=== PATIENT | male | born 1945 | race Caucasian/White ===

== ENCOUNTER 2021-11-22 02:36 | Emergency (ER) | payer OTHER, SELFPAY ==
[2021-11-22] VITALS (9 sets, daily range): BP systolic 128–193; BP diastolic 63–93; PULSE 49–60; RESP 12–21; O2SAT 95–99; BMI 24.7
--- NOTE | 2021-11-22 02:53 | DI.RAD.S_ITS ---
PROCEDURE: XR CHEST 1V INDICATIONS: chest pain TECHNIQUE: One view of the chest was acquired. COMPARISON: None. FINDINGS: Surgical changes and devices: None. Lungs and pleura: Mild left basilar atelectasis. Lungs are otherwise clear. No pleural effusions or pneumothorax. Mediastinum: Mediastinal contours appear normal. Heart size is normal. Bones and chest wall: No suspicious bony lesions. Overlying soft tissues appear unremarkable. IMPRESSION: No acute cardiopulmonary disease. No significant discrepancy with the awake overnight monitor radiology preliminary report. Dictated by: Kay Nichols M.D. on 11/22/2021 at 7:52 Approved by: Kay Nichols M.D. on 11/22/2021 at 7:53
[2021-11-22 03:00] LABS: Add Manual Diff / Slide Review NO; Basophils Absolute Auto 0 /uL (0-100); Basophils Percent Auto 0.7 % (0-2); Eosinophils Absolute Auto 200 /uL (0-450); Hematocrit 43.7 % (41-53); Hemoglobin 14.7 g/dL (13.5-17.5); Lymphocytes Absolute Auto 1700 /uL (1100-4500); Lymphocytes Percent Auto 30.3 % (25-40); Mean Corpuscular HGB Conc 33.5 % (30-36); Mean Corpuscular Hemoglobin 31.1 PG (26-34); Mean Corpuscular Volume 92.7 fL (80-100); Monocytes Absolute Auto 600 /uL (0-900); Monocytes Percent Auto 10.7 % (3-14); Neutrophils Absolute Auto 3000 /uL (1500-7000); Neutrophils Percent Auto 54.3 % (50-75); Platelet Count 158 X10^3/uL (150-400); Red Blood Cell Count 4.72 X10^6/uL (4.5-5.9); Red Cell Distribution Width 13.1 % (11.6-14.8); White Blood Cell Count 5.5 X10^3/uL (4.5-11.0)
[2021-11-22 03:11] LABS: Alanine Aminotransferase 23 IU/L (<50); Albumin 4.4 g/dL (3.5-5.0); Albumin Globulin Ratio 1.5 (1.0-2.8); Alkaline Phosphatase 54 U/L (38-126); Aspartate Aminotransferase 24 IU/L (17-59); BUN Creatinine Ratio 16.8 (6-22); Bilirubin Total 0.8 mg/dL (0.2-1.3); Blood Urea Nitrogen 19 mg/dL (9-20); Calcium 9.3 mg/dL (8.4-10.2); Carbon Dioxide 30 mmol/L (22-32); Chloride 108 mmol/L (98-107); Creatine Kinase 51 U/L (55-170); Estimated Glomerular Filt Rate > 60 mL/min (>60); Glucose 144 mg/dL (80-110); HEMOLYSIS < 15 (0-50); Lipase 174 U/L (23-300); Potassium 3.9 mmol/L (3.4-5.1); Sodium 143 mmol/L (137-145); Total Protein 7.4 g/dL (6.3-8.2)
[2021-11-22 03:22] LABS: Troponin I < 0.012 ng/mL (0.01-0.034)
[2021-11-22] MEDS: ASPIRIN 81 MG CHEW TAB 324 MG PO (03:27)
--- NOTE | 2021-11-22 03:34 | ED.CHESTPAIN ---
HPI - Chest Pain General Chief Complaint: Chest Pain Stated Complaint: Chest Pain Time Seen by Provider: 11/22/21 02:46 Source: patient Mode of arrival: Ambulatory History of Present Illness HPI narrative: 76-year-old gentleman with a history of hypertension, hyperlipidemia, Raynaud's disease and essential tremor presents complaining of chest pain. He states that is been intermittently present for a month. He describes it as substernal central sharp stabbing pains that are fleeting. Did have an upper respiratory infection about the same time with pain behind the sternum. He notes on the 2nd HEENT is went for a walk and he had a brief but very severe episode of burst like central pain substernal radiating to his neck and down toward his umbilicus. Was not significant enough that he even mentioned to his . The next day he spent quite a bit of time what going up and down ladders and cleaning the gutters and had recurrent episodes of the sharp central pain lasting only seconds. This evening he was at a Bible study and was noticing intermittent sharp pains throughout the evening and then once he laid down in bed it began to occur at rest. He does not describe this as burning, it is not associated with diaphoresis, nausea, vomiting or palpitations. He does not have any near syncopal complaints. He notes that this is not positional, it is not worse with deep breathing is not related to eating. Does seem to be related to activity. None of the episodes have lasted more than seconds to a minute. He is concerned that he has a strong family history for cardiac disease however this includes a father who of an NM at the age of 75 brother who had an NM at the age of 80 and a brother who had a CABG at the age of 75. Related Data Home Medications Medication Instructions Recorded Confirmed diltiazem HCl 120 mg 120 mg PO DAILY 11/22/21 11/22/21 capsule,extended release 24 hr lisinopril 20 mg tablet 20 mg BID 11/22/21 11/22/21 rosuvastatin 5 mg tablet 5 mg DAILY 11/22/21 11/22/21 Allergies Allergy/AdvReac Type Severity Reaction Status Date / Time Penicillins Allergy Rash Verified 11/22/21 02:50 morphine AdvReac Dizziness Verified 11/22/21 02:50 Review of Systems Review of Systems Narrative: Remainder of complete review of systems is otherwise unremarkable except for that included in the HPI. Patient History Medical History (Updated 11/22/21 @ 05:48 by Stephenie Monroe MD) Essential tremor Hyperlipidemia Hypertension Raynauds disease Exam Initial Vital Signs Initial Vital Signs: Vital Signs Pulse Rate 57 L 11/22/21 02:44 Respiratory Rate 21 11/22/21 02:44 Blood Pressure 193/93 H 11/22/21 02:44 Pulse Oximetry 99 11/22/21 02:44 Oxygen Delivery Method 11/22/21 02:44 General: Healthy appearing, in no acute distress. Able to give a complete and coherent history. Well-nourished well-developed HEENT: Moist mucous membranes, normal sclera with reactive pupils, Neck: No JVD, supple Respiratory: Lungs are clear to auscultation, no wheezing no rales no rhonchi. Full and symmetrical air movement Cardiac: Regular rate and rhythm no murmurs no bruits Abdomen: Soft, nontender, good bowel tones, no flank pain Skin: Warm and dry, no rashes Neurologic: Grossly neurologically intact with no obvious asymmetries or abnormalities Extremities: No trauma, well perfused Psych: Cooperative, appropriate insight and affect Course Orders Ordered: ED Orders 11/22/21 02:50 Complete Blood Count AUTO DIFF Stat Comprehensive Metabolic Panel Stat Lipase Stat Magnesium Stat Troponin & CK Cardiac Panel Stat 11/22/21 02:53 XR chest 1V Stat EKG-12 Lead Stat 11/22/21 04:57 Trop I [Troponin I] Stat Discontinued Medications Aspirin (Aspirin 81 Mg Chew Tab) 324 mg PO NOW ONE Stop: 11/22/21 03:23 Last Admin: 11/22/21 03:27 Dose: 243 mg Documented By: SB Vital Signs Vital signs: Vital Signs - 8 hr 11/22/21 02:44 11/22/21 02:46 11/22/21 03:00 Pulse Rate 57 L 59 L 60 Respiratory Rate 21 16 20 Blood Pressure 193/93 H Pulse Oximetry 99 99 98 Oxygen Delivery Method Room Air 11/22/21 03:03 11/22/21 03:03 11/22/21 03:30 Pulse Rate 59 L Respiratory Rate 16 Blood Pressure 155/72 H 148/70 H Pulse Oximetry 98 Oxygen Delivery Method 11/22/21 03:30 11/22/21 04:00 11/22/21 04:00 Pulse Rate 59 L 53 L Respiratory Rate 20 12 Blood Pressure 141/68 H Pulse Oximetry 97 98 Oxygen Delivery Method MDM - Chest Pain Lab Data Result diagrams: 11/22/21 02:50 11/22/21 02:50 Labs: Lab Results 11/22/21 11/22/21 11/22/21 Range/Units 02:50 02:50 04:57 WBC 5.5 (4.5-11.0) X10^3/uL RBC 4.72 (4.5-5.9) X10^6/uL Hgb 14.7 (13.5-17.5) g/dL Hct 43.7 (41-53) % MCV 92.7 (80-100) fL MCH 31.1 (26-34) PG MCHC 33.5 (30-36) % RDW 13.1 (11.6-14.8) % Plt Count 158 (150-400) X10^3/uL Neut % (Auto) 54.3 (50-75) % Lymph % (Auto) 30.3 (25-40) % [place] % (Auto) 10.7 (3-14) % Eos % (Auto) 4.0 (2-4) % Baso % (Auto) 0.7 (0-2) % Neut # (Auto) 3000 (4743-0303) /uL Lymph # (Auto) 1700 (3910-5789) /uL [place] # (Auto) 600 (0-900) /uL Eos # (Auto) 200 (0-450) /uL Baso # (Auto) 0 (0-100) /uL Sodium 143 (137-145) mmol/L Potassium 3.9 (3.4-5.1) mmol/L Chloride 108 H (98-107) mmol/L Carbon Dioxide 30 (22-32) mmol/L BUN 19 (9-20) mg/dL Creatinine 1.13 (0.66-1.25) mg/dL Estimated GFR > 60 (>60) mL/min BUN/Creatinine Ratio 16.8 (6-22) Glucose 144 H (80-110) mg/dL Calcium 9.3 (8.4-10.2) mg/dL Magnesium 2.0 (1.6-2.3) mg/dL Total Bilirubin 0.8 (0.2-1.3) mg/dL AST 24 (17-59) IU/L ALT 23 (<50) IU/L Alkaline Phosphatase 54 (38-126) U/L Total Creatine Kinase 51 L (55-170) U/L CK-MB (CK-2) TNP CK-MB (CK-2) Rel Index TNP Troponin I < 0.012 < 0.012 (0.01-0.034) ng/mL Total Protein 7.4 (6.3-8.2) g/dL Albumin 4.4 (3.5-5.0) g/dL Globulin 3.0 (1.7-4.1) g/dL Albumin/Globulin Ratio 1.5 (1.0-2.8) Lipase 174 (23-300) U/L Imaging Data Chest x-ray: My Impression: Unremarkable chest ECG Data Interpretation: Sinus Triston with a first-degree block at a rate of 59 Normal axis No acute ischemic changes MDM Narrative Medical decision making narrative: 76-year-old gentleman presents with episodes of substernal chest pain he describes as sharp stabbing and fleeting. It has been increasing over the course of the evening and he was uncomfortable sleeping. Cardiac workup is unremarkable with negative troponins x2, EKG is reassuring chest x-rays usual reassuring. Labs otherwise are equally unremarkable. He has responded nicely to a single dose of Toradol with almost complete resolution of his symptoms. At this point I think the chance of this truly being cardiac heart pain are low and I feel comfortable with him going home. We reviewed all of these findings. Have suggested that he try ibuprofen and Tylenol should he have an episode such as this evening where the pain seem to be getting worse. 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 Discharge Plan Departure Patient Disposition: Home Clinical Impression: Chest pain, musculoskeletal Instructions: DI for Atypical Chest Pain Activity Restrictions/Additional Instructions: Thank you for coming in today Your workup in the emergency department was very reassuring. I do not find any suggestion that the pain that you are experiencing in these severe sharp stabbing episodes seems to be related to your heart. Your EKG, chest x-ray, troponin x2 and remainder of your labs were very reassuring. Your given a dose of Toradol, this is similar to IV ibuprofen and tends to help with musculoskeletal pain but tends to not make much difference with cardiac pain. You noticed that it did seem to alleviate the symptoms that your having. I am going to suggest that you try using ibuprofen at 400 mg along with 325 mg of Tylenol every 6 hours as needed for this sharp stabbing chest pain. if you have different chest pain that seems to be associated with sweating, shortness of breath, is a squeezing feeling, persists longer than a few seconds or seems sharper or more concerning it would be absolutely appropriate to return to the emergency department. Please do schedule followups with both your primary care physician in your fire hydrant mechanic to discuss this emergency visit. They may want to do some additional outpatient testing I wish you well Prescriptions: No Action lisinopril 20 mg tablet 20 mg BID diltiazem HCl 120 mg capsule,extended release 24hr 120 mg PO DAILY rosuvastatin 5 mg tablet 5 mg DAILY
[2021-11-22 05:32] LABS: Troponin I < 0.012 ng/mL (0.01-0.034)
[2021-11-22] MEDS: KETOROLAC 30 MG/ML VIAL 15 MG IV (05:56)
== END 2021-11-22 06:14 | disposition home or self-care (01) ==
PROVIDERS: Emergency Provider Emergency Medicine
DX: R07.89 Other chest pain (principal)
CPT/HCPCS: 36415; 71045; 80053; 82550; 83690; 83735; 84484; 85025; 93005; 93010; 96374; 99284; J1885